=== PATIENT | male | born 1935 | race Two or more races ===

== ENCOUNTER 2019-10-27 05:48 | Day surgery (SDC) | payer MEDICARE, OTHER ==
--- NOTE | 2019-10-26 14:48 | Pre-Procedure Note/Attestation ---
Pre-Procedure Note/Attestation Complete Prior to Procedure Planned Procedure: right Procedure Narrative: Cataract extraction with Intraocular lens implant right eye Indications for Procedure Pre-Operative Diagnosis: Nuclear sclerotic cataract right eye Attestation I attest that I discussed the nature of the procedure; its benefits; risks and complications; and alternatives (and the risks and benefits of such alternatives ), prior to the procedure, with the patient (or the patient's legal signs sales representative). I attest that, if there was a reasonable possibility of needing a blood transfusion, the patient (or the patient's legal signs sales representative) was given the [facility] standardized written summary, pursuant to the [place] Te Blood Safety Act ([place] Health and Safety Code # 1645, as amended). I attest that I re-evaluated the patient just prior to the surgery and that there has been no change in the patient's H&P, except as documented below: Kelechi Herman MD Oct 26, 2019 14:48
--- NOTE | 2019-10-26 14:51 | Opthalmology H&P ---
Ophthalmology H&P H&P Chief Complaint: decreased vision in right eye HPI Vision Affects Ability to: read, manage personal affairs HPI Narrative Blurry vision Exam Visual Acuity: OD 20/80 OS 20/60 Tension: OD 13 OS 12 Eye Exam: normal OU: external exam, palpebral fissure-width, marginal reflex distance, levator function, corneas, anterior chambers, fundus exam; findings: lens - Cataracts NS OU Assessment/Plan Treatment Plan: cataract extraction w/ lens implant Goals of Treatment: improvement of vision, enhance quality of life Attestation Attestation The risks and benefits of the surgery as well as alternative procedures were explained to the patient in detail. Kelechi Herman MD Oct 26, 2019 14:51
--- NOTE | 2019-10-26 16:14 | NUR ---
[employer] translation services used to obtained medical history with railway signal technician: Doni ID # [id number].
[2019-10-27] VITALS (9 sets, daily range): BP systolic 136–164; BP diastolic 69–87
[~2019-10-27] VITALS: Ht 182.9 cm; Wt 82.6 kg
[~2019-10-27 05:48] MED LIST: ATENOLOL25 MG ORAL; LOSARTAN POTASS50 MG ORAL; METFORMIN HCL1000 M1 ORAL; METOPROLOL SUC100 MG ORAL
[2019-10-27] MEDS ORDERED: Akten 3.5% 1ml Btl RIGHT EYE ONE (07:00)
[2019-10-27] MEDS ORDERED: Proparacaine 0.5% Opth Soln 15ml RIGHT EYE ONE (07:00)
[2019-10-27] MEDS ORDERED: Tetracaine 0.5% Opth 4ml Soln RIGHT EYE ONE (07:00)
--- NOTE | 2019-10-27 07:11 | Anethesia Preoperative Eval ---
Anesthesia Pre-op PMH/ROS General Date of Evaluation: Oct 27, 2019 Anesthesiologist: Venkata ASA Score: ASA 2 Mallampati Score Class I : Soft palate, uvula, fauces, pillars visible Class II: Soft palate, uvula, fauces visible Class III: Soft palate, base of uvula visible Class IV: Only hard plate visible Mallampati Classification: Class II Surgeon: Batsheva Diagnosis: right cataract Surgical Procedure: right cataract extraction with iol Anesthesia History: none Family History: no anesthesia problems Allergies: Coded Allergies: No Known Allergies (Unverified , 10/26/19) Medications: see eMAR Patient NPO?: Yes NPO Date: Oct 27, 2019 NPO Time: 00:00 Past Medical History Cardiovascular: Reports: HTN; Denies: CAD, VA, valve dz, arrhythmia, other Pulmonary: Denies: asthma, COPD, DUSTIN, other Gastrointestinal/Genitourinary: Reports: other - BPH; Denies: GERD, CRI, ESRD Neurologic/Psychiatric: Denies: dementia, CVA, depression/anxiety, TIA, other Endocrine: Reports: DM; Denies: hypothyroidism, steroids, other HEENT: Reports: cataract (L), cataract (R); Denies: glaucoma, TULALIP (L), TULALIP (R), other Hematology/Immune: Denies: anemia, DVT, bleeding disorder, other Musculoskeletal/Integumentary: Denies: OA, RA, DJD, DDD, edema, other PSxH Narrative: Denies Anesthesia Pre-op Phys. Exam Physician Exam see chart Constitutional: NAD Cardiovascular: RRR Respiratory: CTA Airway Exam Mallampati Score: Class II MO: full ROM: full Dentures: upper, lower Anesthesia Pre-op A/P Labs see chart Studies Pre-op Studies: EKG - sr with 1st degree av block Risk Assessment & Plan Assessment: ASA II Plan: MAC Status Change Before Surgery: No Pre-Antibiotics Drug: N/A Elizabeth Machado MD Oct 27, 2019 07:11
[2019-10-27] MEDS ORDERED: LR 1000ml 1,000 ML IVLG SCH (07:19)
[2019-10-27] MEDS: Tropicamide 1% Opth 15ml Soln RIGHT EYE SCH ×3 (07:25→07:40)
[2019-10-27] MEDS: Cyclopentolate 1% Opth Sol 2ml RIGHT EYE SCH ×3 (07:25→07:40)
[2019-10-27] MEDS: Phenylephrine 10% Opth Soln 5ml RIGHT EYE SCH ×2 (07:25→07:35)
[2019-10-27] MEDS: Ciprofloxacin Opth Soln 2.5ml RIGHT EYE SCH ×3 (07:25→07:42)
[2019-10-27] MEDS ORDERED: EPINEPHrine 1mg/1ml Amp ONE (07:28)
[2019-10-27] MEDS ORDERED: Polysporin Opth Oint 3.5gm ONE (07:29)
[2019-10-27] MEDS ORDERED: BSS 15ml BTL ONE (07:29)
[2019-10-27] MEDS ORDERED: Lidocaine 4% Amp 5ml ONE (07:29)
[2019-10-27] MEDS ORDERED: BSS 500ml btl ONE (07:29)
[2019-10-27] MEDS ORDERED: Sodium Hyaluronate 10 mg/ml 0.85ml ONE (07:29)
[2019-10-27] MEDS ORDERED: DiphenhydrAMINE 50mg/ml Inj IVP PRN (07:30)
[2019-10-27] MEDS ORDERED: Povidone-Iodine 5% opth solution ONE (07:30)
[2019-10-27 07:36] LABS: BASOPHILS % (AUTO) 1.2 % (0.0-2.0); EOSINOPHILS % (AUTO) 1.1 % (0.0-3.0); HEMOGLOBIN 16.5 G/DL (14.2-18.0); LYMPHOCYTES % (AUTO) 32.4 % (20.0-45.0); MEAN CORPUSCULAR VOLUME 89 FL (80-99); MONOCYTES % (AUTO) 6.1 % (1.0-10.0); NEUTROPHILS % (AUTO) 59.1 % (45.0-75.0); PLATELET COUNT 192 K/UL (150-450); RED BLOOD COUNT 4.94 M/UL (4.70-6.10); RED CELL DISTRIBUTION WIDTH 11.1 % (11.6-14.8); WHITE BLOOD COUNT 11.4 K/UL (4.8-10.8)
[2019-10-27 07:40] LABS: ANION GAP 11 mmol/L (5-15); BLOOD UREA NITROGEN 15 mg/dL (7-18); CALCIUM 9.2 MG/DL (8.5-10.1); CARBON DIOXIDE 26 MMOL/L (21-32); CHLORIDE 94 MMOL/L (98-107); CREATININE 0.9 MG/DL (0.55-1.30); POTASSIUM 3.5 MMOL/L (3.5-5.1); SODIUM 131 MMOL/L (136-145)
[2019-10-27] MEDS ORDERED: Lidocaine 1% MPF 10mg/ml 5ml ONE (08:43)
[2019-10-27] MEDS ORDERED: Midazolam 2mg/2ml Inj ONE (08:43)
[2019-10-27] MEDS ORDERED: fentaNYL 100 mcg/2 mL IV ONE (08:43)
[2019-10-27] MEDS ORDERED: NS Irrig 1000ml ONE (09:00)
[2019-10-27] MEDS ORDERED: LR 1000ml ONE (09:00)
[2019-10-27] MEDS ORDERED: Sterile Water Irrig 1000ml IRRIG ONE (09:00)
--- NOTE | 2019-10-27 09:25 | Immediate Post-Op Evaluation ---
Immediate Post-Op Evalulation Immediate Post-Op Evalulation Procedure: right cataract extraction with IOl Date of Evaluation: Oct 27, 2019 Time of Evaluation: 09:28 IV Fluids: 200 Blood Products: 0 Estimated Blood Loss: 0 Urinary Output: 0 Blood Pressure Systolic: 170 Blood Pressure Diastolic: 87 Pulse Rate: 68 Respiratory Rate: 16 O2 Sat by Pulse Oximetry: 95 Temperature (Fahrenheit): 97.3 Pain Score (1-10): 0 Nausea: No Vomiting: No Complications 0 Patient Status: awake, reacts, patent, none Hydration Status: adequate Drug: N/A Elizabeth Machado MD Oct 27, 2019 09:25
--- NOTE | 2019-10-27 09:26 | 48 Hour Post Anesthesia Eval ---
Post Anesthesia Evaluation Procedure: right cataract extraction with IOl Date of Evaluation: Oct 27, 2019 Airway: patent Nausea: No Vomiting: No Pain Intensity: 0 Hydration Status: adequate Cardiopulmonary Status: at baseline Mental Status/LOC: patient returned to baseline Post-Anesthesia Complications: 0 Follow-up care needed: ready to discharge Elizabeth Machado MD Oct 27, 2019 09:26
--- NOTE | 2019-10-27 11:30 | Pre-op HX & Phy Repo 2 SIG ---
DATE OF ADMISSION: 10/27/2019 PRESURGICAL INTERNAL MEDICINE HISTORY AND PHYSICAL DATE OF EVALUATION: October 27, 2019 REASON FOR EVALUATION: I was asked by Dr. Kelechi Herman to see this 84-year-old Albanian-speaking male, who is going for elective surgery on the right eye. The patient has nuclear sclerotic cataract in the right eye. The patient was evaluated in [facility]. Translation obtained through the grandson at bedside. The patient complained of progressive vision loss due to cataract in the right eye. The patient is alert, well-developed, well-nourished male in his 80s, in no acute distress. PAST MEDICAL HISTORY: Remarkable for history of hypertension, history of type 2 diabetes mellitus. No history of stroke or seizures. Denies history of heart attack, chest pain, or palpitation. No history of respiratory problem such as asthma, bronchitis, COPD, or emphysema. Denies stomach problem, bleeding, or heartburn. No liver problem. No hepatitis. Denies history of thyroid problem or anemia. No history of renal failure or prostate problem. SURGICAL HISTORY: In the past, none. FAMILY HISTORY: Father from complication of prostate cancer. Mother, unknown. ALLERGIES: Not known. PRESENT MEDICATIONS: Include atenolol 25 mg daily, losartan 50 mg daily, metformin 1000 mg twice a day. HABITS: Denies history of smoke. Alcohol yes, [address]. PHYSICAL EXAMINATION: GENERAL: Alert, well-developed, and well-nourished male in his 80s. VITAL SIGNS: Blood pressure 144/76, temperature 97.6, heart rate 64 and regular, and O2 saturation 97% on room air. SKIN: Warm, dry, clear. No rashes. No diaphoresis. LYMPH NODES: Not enlarged. HEENT: Head normocephalic, atraumatic. No ear discharge. No nose discharge. Eyes, full description per Dr. Kelechi Herman. The mouth is clear and moist. Absent of the lateral teeth on the bottom. NECK: Supple. No jugular venous distention. Carotids artery +2. Trachea midline. CHEST: No deformity or asymmetry. LUNGS: Clear to auscultation and percussion. No rales or rhonchi. Heart sound distant. No murmur. No S3 or S4. ABDOMEN: Soft, benign. Liver and spleen not enlarged. Ventral umbilical hernia fully reducible. GENITOURINARY TRACT: Normal for gender. Denies dysuria. CVA nontender. EXTREMITIES: No peripheral edema. No varicose vein. No calf tenderness. No deformity. NERVOUS SYSTEM: No nystagmus or tremors. LABORATORY AND DIAGNOSTIC DATA: ECG, sinus rhythm, 64 per minute, first-degree AV block, and left axis deviation. The patient did not eat or drink from 8 p.m. yesterday. Fast blood sugar this morning 114 mg/dL. Rest of laboratory pending. IMPRESSION: 1. Nuclear sclerotic cataract, right eye. 2. Hypertension, controlled. 3. Diabetes mellitus type 2, controlled. 4. Sinus rhythm, first-degree AV block, and left axis deviation. PLAN: Cataract extraction of right eye with intraocular lens implant per Dr. Kelechi Herman. CONCLUSION: The patient has history of diabetes and hypertension, both condition controlled. The patient is asymptomatic. Did not eat or drink from last night. The patient's condition optimized for surgery. Thank you very much, Dr. Herman, for privilege to participate in presurgical care of this interesting patient. Delma Ricardo M.D. DR: Jeremy JOB#: [id number] CC:
--- NOTE | 2019-11-01 10:54 | Brief Operative Note ---
Immediate Post Operative Note Operative Note Chief Complaint: Blurry Vision Pre-op Diagnosis: Nuclear sclerotic cataract right eye Procedure: Cataract extraction with intraocular lens implant right eye Post-op Diagnosis: Pseudophakia OD Findings: consistent w/pre-op dx studies Surgeon: Kelechi Herman MD Anesthesiologist: Elizabeth Goyal MD Anesthesia: MAC Specimen: none Complications: none Condition: stable Fluids: LR Estimated Blood Loss: none Drains: none Implant(s) used?: Yes - IOL OD Kelechi Herman MD Nov 01, 2019 10:54
--- NOTE | 2019-11-01 10:55 | Operative Note - PDOC ---
Operative Note Operative Note Date of Operation/Procedure: Oct 27, 2019 Chief Complaint: Blurry Vision Pre-op Diagnosis: Nuclear sclerotic cataract right eye Procedure: Cataract extraction with intraocular lens implant right eye Post-op Diagnosis: Pseudophakia OD Operative Findings: consistent w/pre-op dx studies Surgeon: Kelechi Herman MD Anesthesiologist: Elizabeth Goyal MD Anesthesia: MAC Specimen: none Complications: none Condition: stable Fluids: LR Estimated Blood Loss: none Drains: none Implant(s) used?: Yes - IOL OD Indications for Procedure Nuclear sclerotic cataract right eye Description of Procedure This patient has been complaining visually significant cataract in the right eye with the best corrected visual acuity of 20/80 under moderate glare conditions worse. The patient complains of difficulties with glare in performing activities of daily living and wants to manage personal affairs with comfort and accuracy and see well enough to move with safety at home and outdoors. The risks, benefits and alternatives of the procedure were discussed with the patient in the office prior to scheduling surgery. All questions from the patient were answered after the surgical procedure was explained in detail. The risks of the procedure as explained to the patient include, but are not limited to, pain, infection, bleeding, loss of vision, retinal detachment, need for further surgery, loss of lens nucleus, double vision, etc. Alternative procedures were discussed which include, to do nothing or seek a second opinion. Informed consent for this procedure was obtained from the patient. The patient was referred to a primary care physician for a cardiopulmonary clearance prior to surgery, after proper evaluation was done patient was properly scheduled for outpatient surgery. The patient was brought to the operating room where the anesthesiologist established I.V. lines and cardiac monitoring leads. Mild intravenous sedation was administered. The patient was then prepared with a 5% solution of povidone -iodine to the conjunctival fornix and lashes, and a 5% solution of povidone- iodine to the lids and periorbital skin. The patient was then draped in the usual sterile fashion. A lid speculum was then placed in the operative eye. A keratome blade was then used to create a biplanar incision into the anterior chamber. Viscoelastics was then instilled into the anterior chamber. A capsulorrhexis was then fashioned with an utrata forceps. BSS and a cannula were then used to hydrodissect and hydro delineate the lens. Paracentesis incision was made at 3 o'clock with sharp blade. The phacoemulsification unit, after being properly adjusted and tested, was then used to emulsify the nucleus. Residual cortical material was aspirated with the irrigation and aspiration unit. Healon was then instilled into the anterior chamber. The corneal wound was then enlarged to the size of the optic with the lopez keratome blade. The intraocular lens was then inspected for right power and size and thought to be satisfactory. Then the lens was gently placed in the capsular bag. Positioning within the capsular bag was confirmed by direct visualization. Optic centration was accomplished with a Sinskey hook. Viscoelastics was removed from the anterior chamber using the irrigation and aspiration unit. The corneal wound was then tested for leaks and none were found. The lid speculum were then removed. Sponge and needle counts were correct. An eye patch and shield were placed over the operative eye. The patient was taken to the recovery room in stable condition. There were no complications. The patient tolerated the procedure well. The patient was then transferred to the ambulatory surgery unit in stable and satisfactory condition , was given detailed written instructions and asked to follow up in the office the next day. Kelechi Herman MD Nov 01, 2019 10:55
== END 2019-10-27 10:20 | disposition home or self-care (01) ==
LOC: SUR 05:48
DX: H25.11 Age-related nuclear cataract, right eye (principal); Z79.84 Long term (current) use of oral hypoglycemic drugs; I10 Essential (primary) hypertension; E11.9 Type 2 diabetes mellitus without complications; I44.0 Atrioventricular block, first degree
CPT/HCPCS: 36415; 66984; 80048; 85025; J0171; J2250; J3010; J3370; J7120; V2632; 94003; 94150